=== PATIENT | female | born 1970 | race Asian ===

== ENCOUNTER 2018-07-28 15:01 | Inpatient (IN) | payer OTHER ==
[2018-07-28 15:08] VITALS: BMI 35.4
--- NOTE | 2018-07-28 15:42 | PDOC ---
History of Present Illness - General Chief Complaint: Blood Transfusion Stated Complaint: sent by PMD for eval and blood transfusion Time Seen by Provider: 07/28/18 15:14 History Source: Patient (Dr Jere Patel called that he performed liposuccion in both armsand trunk 2 weeks ago.), Other (Patient is complaining of generalized weakness,dizziness when walking, nausea in the morning) Exam Limitations: No Limitations - History of Present Illness Timing/Duration: unsure, getting worse Severity: moderate, severe Modifying Factors: improves with: rest Associated Symptoms: denies: denies symptoms, chest pain, cough, diaphoresis, fever/chills, headaches, loss of appetite, malaise, nausea/vomiting, rash, seizure, shortness of breath, syncope, weakness, other Past History - Travel Traveled outside of the country in the last 30 days: No Close contact w/someone who was outside of country & ill: No - Past Medical History Allergies/Adverse Reactions: Allergies Allergy/AdvReac Type Severity Reaction Status Date / Time No Known Allergies Allergy Verified 07/28/18 15:04 Home Medications: Ambulatory Orders Levothyroxine [Synthroid -] 50 mcg PO DAILY 07/28/18 COPD: No Thyroid Disease: Yes (hypo) - Family Disease History Family Disease History: Diabetes: Sister - Suicide/Smoking/Psychosocial Hx Smoking History: Never smoked Hx Alcohol Use: No Drug/Substance Use Hx: No Lives with/in: spouse/SO Review of Systems - Review of Systems Able to Perform ROS?: Yes Is the patient limited Mongolian proficient: Yes Constitutional: Yes: Symptoms Reported, See HPI, Weakness HEENTM: No: Symptoms Reported, See HPI, Eye Pain, Blurred Vision, Tearing, Recent change in vision, Double Vision, Cataracts, Ear Pain, Ocular Prothesis, Ear Discharge, Nose Pain, Nose Congestion, Tinnitus, Nose Bleeding, Hearing Loss , Throat Pain, Throat Swelling, Mouth Pain, Dental Problems, Difficulty Swallowing, Mouth Swelling, Other Respiratory: Yes: SOB with Exertion Cardiac (ROS): No: Symptoms Reported, See HPI, Chest Pain, Edema, Irregular Heart Rate, Lightheadedness, Palpitations, Syncope, Chest Tightness, Other ABD/GI: No: Symptoms Reported, See HPI, Abdominal Distended, Abd. Pain w/ defecation, Blood Streaked Bowels, Constipated, Diarrhea, Difficulty Swallowing , Nausea, Poor Appetite, Poor Fluid Intake, Rectal Bleeding, Vomiting, Indigestion, Abdominal cramping, Tarry Stools, Other : No: Symptoms Reported, See HPI, Burning, Dysuria, Discharge, Frequency, Flank Pain, Hematuria, Incontinence, Pain, Urgency, Testicular Mass, Testicular Swelling, Lesions, Testicular Pain, Other Musculoskeletal: Yes: See HPI Integumentary: Yes: See HPI Neurological: No: Symptoms reported, See HPI, Headache, Numbness, Paresthesia, Pre-Existing Deficit, Seizure, Tingling, Tremors, Weakness, Unsteady Gait, Ataxia, Dizziness, Other Psychiatric: No: Anxiety, Depression, Frequent Crying, Stressors, Sleep Pattern Change, Emotional Problems, Mood Swings, Change in Appetite, Other Endocrine: No: Symptoms Reported, See HPI, Excessive Sweating, Flushing, Intolerance to Cold, Intolerance to Heat, Increased Hunger, Increased Thirst, Increased Urine, Unexplained Weight Gain, Unexplained Weight Loss, Change in Weight, Other Hematologic/Lymphatic: No: Symptoms Reported, See HPI, Anemia, Blood Clots, Easy Bleeding, Easy Bruising, Bleeding Diathesis, Lymph Node Abnormalities, Swollen Glands, Other All Other Systems: Reviewed and Negative *Physical Exam - Vital Signs Last Vital Signs Temp Pulse Resp BP Pulse Ox 99.1 F 100 H 16 100/59 L 100 07/28/18 15:02 07/28/18 15:02 07/28/18 15:02 07/28/18 15:02 07/28/18 15:02 - Physical Exam General Appearance: Yes: Nourished, Appropriately Dressed, Moderate Distress HEENT: positive: ANN MARIE, Pale Conjunctivae, Other ( ) Neck: positive: Trachea midline, Supple Respiratory/Chest: positive: Lungs Clear, Normal Breath Sounds Cardiovascular: positive: S1, S2 Extremity: positive: Normal Capillary Refill Integumentary: positive: Pale, Other (Flaccid skin , few recent scars at sites of liposucction) Moderate Sedation - Procedure Monitoring Vital Signs: Procedure Monitoring Vital Signs Temperature 99.1 F 07/28/18 15:02 Pulse Rate 100 H 07/28/18 15:02 Respiratory Rate 16 07/28/18 15:02 Blood Pressure 100/59 L 07/28/18 15:02 O2 Sat by Pulse Oximetry (%) 100 07/28/18 15:02 Heart Score/ECG Review - Risk Factors Risk Factors Heart Score: Yes Hx Diabetes, Yes Positive family hx of cardiac disease - ECG Intrepretation Rhythm: Regular Rhythm - [place]: Normal - P and CO Prominent R with upright T in V1 (true posterior AR): No ED Treatment Course - LABORATORY CBC & Chemistry Diagram: 07/28/18 15:45 07/28/18 15:45 *DC/Admit/Observation/Transfer Diagnosis at time of Disposition: Signs and symptoms of anemia - Discharge Dispostion Condition at time of disposition: Stable Decision to Admit order: Yes - Referrals Referrals: Aris Bradley MD [Primary Care Provider] - - Patient Instructions - Post Discharge Activity
[2018-07-28] MEDS: SODIUM CHLORIDE 1,000 ML IV SCH (15:45)
[2018-07-28 15:55] LABS: HEMOGLOBIN 7.3 GM/dl (10.7-15.3)
[2018-07-28 16:02] LABS: HEMATOCRIT 21.5 % (32.4-45.2); MCHC 33.9 g/dl (32.0-36.0); MEAN CELL VOLUME 123.8 fl (80-96); MEAN PLT VOLUME 9.3 fl (7.5-11.1); PLATELET COUNT 126 K/MM3 (134-434); RBC 1.73 M/mm3 (3.60-5.2); RDW 19.6 % (11.6-15.6); WHITE BLOOD COUNT 3.6 K/mm3 (4.0-10.8)
[2018-07-28 16:03] LABS: ADD RBC MORPHOLOGY YES
[2018-07-28 16:28] LABS: ALBUMIN 3.7 g/dl (3.4-5.0); ALK PHOS 65 U/L (45-117); ANION GAP 4 MMOL/L (8-16); BILIRUBIN,TOTAL 2.7 mg/dl (0.2-1); BLOOD UREA NITROGEN 12 mg/dl (7-18); CALCIUM 8.7 mg/dl (8.5-10); CHLORIDE 106 mmol/L (98-107); CO2 25 mmol/L (21-32); CREATININE 0.6 mg/dl (0.55-1.3); GLUCOSE,RANDOM 145 mg/dl (74-106); POTASSIUM 4.3 mmol/L (3.5-5.1); SGOT/AST 57 U/L (15-37); SGPT/ALT 29 U/L (13-61); SODIUM 135 mmol/L (136-145); TOT PROT 6.8 g/dl (6.4-8.2)
[2018-07-28 17:25] LABS: ANISOCYTOSIS 3+; MACROCYTOSIS 3+; PLATELET ESTIMATE DECREASED; TEAR DROP CELLS 1+
--- NOTE | 2018-07-28 23:29 | HP ---
Admitting History and Physical - Admission Chief Complaint: dizziness and generalized weakness History of Present Illness: 48 year old F with hypothyroidism and anemia (pt has been transfused in the remote past) presents to ED at the urging of Dr. Patel who performed liposuction two weeks ago. Ms. Moran reports 10days of generalized malaise, somnolence and intermittent nausea which has been affecting her ADLs. She presented to Dr. Patel for routine post-op check on 07/27, where she reported her persistent symptoms and therefore labs were drawn. She was notified by Dr. Patel on the afternoon of 07/28 that her H/H was low and she required inpt admission for transfusion. In ED, pt was hemodynamically stable. BP 100/59, T 99.1, RR 16, O2 sat 100, HR 100bpm. STAT CBC: H/H 7.3/21.5, PLT 126, WBC 3.6 Pt had T and S sent to lab prior to 2units PRBC transfusion. 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's, CVA, Dementia, Migraine, Multiple Sclerosis, Peripheral Neuropathy, Parkinson's, Seizure, Syncope, TIA, Vertigo, Other Cardiovascular: No: AFIB, Aneurysm, Aortic Insufficiency, Aortic Stenosis, CAD, CHF, Deep Vein Thrombosis, HTN, Hyperlipdemia, [place], Mitral Insufficiency, Mitral Stenosis, Murmur, Pulmonary Hypertension, Other Pulmonary: No: Asthma, Bronchitis, Cancer, COPD, O2 Dependent, Pneumonia, Previously Intubated, Pulmonary Embolus, Pulmonary Fibrosis, Sleep Apnea, Other Gastrointestinal: No: Ascites, Cancer, Constipation, Crohn's Disease, Diverticulitis, Diverticulosis, Esophageal Varices, Gastritis, GERD, GI Bleed, Hemorrhoids, Hiatal Hernia, Inflamatory Bowel Disease, Irritable Bowel Disease, Pancreatitis, Peptic Ulcer Disease, Ulcerative Colitis, Other Hepatobiliary: No: Cirrhosis, Cholelithiasis, Cholecystitis, Choledocholithiasis , Hepatitis A, Hepatitis B, Hepatitis C, Other Renal/: No: Renal Failure, Renal Inusuff, BPH, Cancer, Hematuria, Hemodialysis , Neurogenic Bladder, Renal Calculi, UTI, Other Heme/Onc: Yes: Anemia Infectious Disease: No: AIDS, C-Diff, Herpes Zoster, HIV, MRSA, STD's, Tuberculosis, VREF, Other Psych: No: Addictions, Anxiety, Bipolar, Depression, Panic, Psychosis, Schizophrenia, Other Musculoskeletal: No: Bursitis, Chronic low back pain, Hemiparesis, Hemiplegia, Osteoarthritis, Paraplegia, Other Rheumatology: No: Fibromyalgia, Gout, Lupus, Rheumatoid Arthritis, Sarcoidosis, Vasculitis, Other ENT: No: Allergic Rhinitis, Sinusitis, Other Endocrine: Yes: Hypothyroidism Dermatology: No: Basal Cell, Cellulitis, Eczema, Melanoma, Psoriasis, Squamous Cell, Other - Past Surgical History Past Surgical History: Yes: (shivani patel 2018 liposuction 06/2018) - Smoking History Smoking history: Never smoked Have you smoked in the past 12 months: No - Alcohol/Substance Use Hx Alcohol Use: No History of Substance Use: reports: None - Social History Usual Living Arrangement: Yes: With Spouse, With Child ADL: Independent Occupation: Homemaker History of Recent Travel: No Other Social History: Exercise: none. Born in [place], emigrated > 32yrs ago Home Medications - Allergies Allergies/Adverse Reactions: Allergies Allergy/AdvReac Type Severity Reaction Status Date / Time No Known Allergies Allergy Verified 07/28/18 15:04 - Home Medications Home Medications: Ambulatory Orders Levothyroxine [Synthroid -] 50 mcg PO DAILY 07/28/18 Family Disease History - Family Disease History Family Disease History: Other: Father (alive(86) DMII, HTN), Mother (alive (85) HTN) Review of Systems - Review of Systems Constitutional: reports: Lethargy, Weakness Eyes: reports: No Symptoms HENT: reports: No Symptoms Neck: reports: No Symptoms Cardiovascular: reports: No Symptoms Respiratory: reports: No Symptoms Gastrointestinal: reports: No Symptoms Genitourinary: reports: No Symptoms Breasts: reports: No Symptoms Reported Musculoskeletal: reports: No Symptoms Integumentary: reports: Other (mild induration left upper arm) Neurological: reports: Weakness Endocrine: reports: No Symptoms Hematology/Lymphatic: reports: No Symptoms Psychiatric: reports: No Symptoms Physical Examination Vital Signs: Vital Signs Temperature 98.8 F 07/28/18 21:52 Pulse Rate 86 07/28/18 21:52 Respiratory Rate 20 07/28/18 21:52 Blood Pressure 100/59 L 07/28/18 21:52 O2 Sat by Pulse Oximetry (%) 98 07/28/18 23:00 Constitutional: Yes: Well Nourished, No Distress, Calm Eyes: Yes: Conjunctiva Clear, EOM Intact, PERRL HENT: Yes: Atraumatic, Normocephalic Neck: Yes: Supple, Trachea Midline Cardiovascular: Yes: Regular Rate and Rhythm Respiratory: Yes: Regular, CTA Bilaterally Gastrointestinal: Yes: Normal Bowel Sounds, Soft ...Rectal Exam: Yes: Deferred Musculoskeletal: Yes: WNL Extremities: Yes: Other (left upper posterior arm with palpable induration which is tender to touch) Edema: No Peripheral Pulses WNL: Yes Peripheral Pulses: Left Radial: 2+, Right Radial: 2+, Left Doralis Pedis: 2+, Right Dorsalis Pedis: 2+ Wound/Incision: Yes: Clean/Dry, Open to air Neurological: Yes: Alert, Oriented ...Motor Strength: WNL Psychiatric: Yes: Alert, Oriented Labs: CBC, BMP 07/28/18 15:45 07/28/18 15:45 Problem List - Problems (1) Anemia, macrocytic Assessment/Plan: f/u vitamin B12 and folate level 2 units PRBC for H/H 7.3/21.5, repeat CBC post transfusion pt is age 48yrs and C-scope is recommended pt should also receive outpt heme consult for chronic anemia, leukopenia and thrombocytopenia Code(s): D53.9 - NUTRITIONAL ANEMIA, UNSPECIFIED (2) Hypothyroidism Assessment/Plan: synthroid 50mcg daily f/u AM TSH and FT4 Code(s): E03.9 - HYPOTHYROIDISM, UNSPECIFIED (3) Prophylactic measure Assessment/Plan: bowel regimen OOB to chair Ambulate as tolerated IV hydration overnight Code(s): Z29.9 - ENCOUNTER FOR PROPHYLACTIC MEASURES, UNSPECIFIED Visit type - Emergency Visit Emergency Visit: Yes ED Registration Date: 07/28/18 Care time: The patient presented to the Emergency Department on the above date and was hospitalized for further evaluation of their emergent condition. - New Patient This patient is new to me today: Yes Date on this admission: 07/28/18 - Critical Care Critical Care patient: No
[2018-07-29] MEDS: LEVOTHYROXINE NA 50 MCG TABLET (FP) PO SCH (06:21)
[2018-07-29 08:09] LABS: BASO % 0.3 % (0-2.0); EOS % 3.3 % (0-4.5); HEMATOCRIT 29.3 % (32.4-45.2); HEMOGLOBIN 9.8 GM/dl (10.7-15.3); LYMPH % 60.9 % (8-40); MCH 36.5 pg (25.7-33.7); MCHC 33.4 g/dl (32.0-36.0); MEAN CELL VOLUME 109.3 fl (80-96); MEAN PLT VOLUME 9.9 fl (7.5-11.1); MONO % 3.4 % (3.8-10.2); NEUT % 32.1 % (42.8-82.8); PLATELET COUNT 88 K/MM3 (134-434); RBC 2.68 M/mm3 (3.60-5.2); RDW 27.6 % (11.6-15.6); WHITE BLOOD COUNT 4.1 K/mm3 (4.0-10.8)
[2018-07-29 08:12] LABS: ALBUMIN 3.4 g/dl (3.4-5.0); ALK PHOS 56 U/L (45-117); ANION GAP 5 MMOL/L (8-16); BILIRUBIN,TOTAL 3.2 mg/dl (0.2-1); BLOOD UREA NITROGEN 9 mg/dl (7-18); CALCIUM 8.6 mg/dl (8.5-10); CHLORIDE 106 mmol/L (98-107); CO2 25 mmol/L (21-32); CREATININE 0.6 mg/dl (0.55-1.3); GLUCOSE,RANDOM 117 mg/dl (74-106); PHOSPHOROUS 4.1 mg/dl (2.5-4.9); POTASSIUM 4.1 mmol/L (3.5-5.1); SGOT/AST 43 U/L (15-37); SGPT/ALT 25 U/L (13-61); SODIUM 136 mmol/L (136-145); TOT PROT 6.3 g/dl (6.4-8.2)
[2018-07-29] MEDS: DOCUSATE SODIUM 100 MG CAPSULE (FP) PO SCH (10:00)
--- NOTE | 2018-07-29 10:54 | PN ---
Physical Exam: SUBJECTIVE: Patient seen and examined. Feels better after transfusion. OBJECTIVE: Vital Signs Period Temp Pulse Resp BP Sys/Méndez Pulse Ox Last 24 Hr 98.8 F-99.1 F 75-100 16-20 100-112/59-62 97-100 GENERAL: The patient is awake, alert, and fully oriented, in no acute distress. LUNGS: Breath sounds equal, clear to auscultation bilaterally, no wheezes, no crackles, no accessory muscle use. HEART: Regular rate and rhythm, S1, S2 ABDOMEN: Soft, nontender, nondistended, normoactive bowel sounds; well-healed surgical port LLQ, no surrounding erythema, warmth, tenderness, or fluctuance UPPER EXTREMITIES: 2+ pulses, warm, well-perfused, no edema. Left tricep area of induration with mild tenderness, but no erythema, warmth, or fluctuance NEUROLOGICAL: Cranial nerves II through XII grossly intact. Normal speech, steady gait. PSYCH: Normal mood, normal affect. SKIN: Warm, dry, normal turgor, no rashes or lesions noted Laboratory Results - last 24 hr 07/28/18 07/28/18 07/28/18 15:45 15:45 16:00 WBC 3.6 L RBC 1.73 L Hgb 7.3 L Hct 21.5 L MCV 123.8 H MCH 42.0 H MCHC 33.9 RDW 19.6 H Plt Count 126 L MPV 9.3 Absolute Neuts (auto) 1.4 Neutrophils % No Result Required. Neutrophils % (Manual) 50.0 Lymphocytes % No Result Required. Lymphocytes % (Manual) 44.0 H Monocytes % Monocytes % (Manual) 4 Eosinophils % Eosinophils % (Manual) 2.0 Basophils % Platelet Estimate Decreased Platelet Comment Few giants platelets Anisocytosis 3+ Macrocytosis 3+ Tear Drop Cells 1+ Sodium 135 L Potassium 4.3 Chloride 106 Carbon Dioxide 25 Anion Gap 4 L BUN 12 Creatinine 0.6 Creat Clearance w eGFR > 60 Random Glucose 145 H Calcium 8.7 Phosphorus Magnesium Total Bilirubin 2.7 H AST 57 H ALT 29 Alkaline Phosphatase 65 Total Protein 6.8 Albumin 3.7 TSH 1.94 Blood Type O POSITIVE Antibody Screen Negative Crossmatch See Detail 07/28/18 07/29/18 07/29/18 16:15 07:29 07:29 WBC 4.1 RBC 2.68 L Hgb 9.8 L Hct 29.3 L D MCV 109.3 H MCH 36.5 H D MCHC 33.4 RDW 27.6 H Plt Count 88 L MPV 9.9 Absolute Neuts (auto) 1.3 Neutrophils % 32.1 L Neutrophils % (Manual) Lymphocytes % 60.9 H Lymphocytes % (Manual) Monocytes % 3.4 L Monocytes % (Manual) Eosinophils % 3.3 Eosinophils % (Manual) Basophils % 0.3 Platelet Estimate Platelet Comment Anisocytosis Macrocytosis Tear Drop Cells Sodium 136 Potassium 4.1 Chloride 106 Carbon Dioxide 25 Anion Gap 5 L BUN 9 Creatinine 0.6 Creat Clearance w eGFR > 60 Random Glucose 117 H Calcium 8.6 Phosphorus 4.1 Magnesium 2.0 Total Bilirubin 3.2 H AST 43 H ALT 25 Alkaline Phosphatase 56 Total Protein 6.3 L Albumin 3.4 TSH Blood Type Cancelled Antibody Screen Crossmatch Current Medications Generic Name Dose Route Start Last Admin Trade Name Freq PRN Reason Stop Dose Admin Acetaminophen 650 mg 07/29/18 18:29 07/29/18 19:02 Tylenol - PO 650 mg Q6H PRN Administration PAIN LEVEL 1-5 Docusate Sodium 100 mg 07/29/18 10:00 07/29/18 10:00 Colace - PO 100 mg DAILY SONAL Administration Sodium Chloride 1,000 mls @ 100 mls/hr 07/28/18 15:45 07/29/18 16:36 Normal Saline - IV 100 mls/hr ASDIR SONAL Administration Piperacillin Sod/Tazobactam 50 mls @ 100 mls/hr 07/29/18 18:00 07/29/18 19:02 Sod 3.375 gm/ Dextrose IVPB 100 mls/hr Q8H-IV SONAL Administration Protocol Levothyroxine Sodium 50 mcg 07/29/18 07:00 07/29/18 06:21 Synthroid - PO 50 mcg DAILY@0700 SONAL Administration Senna 1 tab 07/28/18 22:00 Senna - PO HS SONAL ASSESSMENT/PLAN 48 year-old female with a PMH significant for hypothyroidism, iron-deficiency anemia, and s/p liposuction of both upper extremities and abdomen on 07/03/18. Sent to the ED by Dr. Carlos Manuel Patel who performed the procedure. Patient had reported to him symptoms of profound fatigue for the past 10 days. Labs drawn in his office showed a Hgb 7.4. He referred the patient to the ED for transfusion. Patient found to be pancytopenic. Pancytopenia Macrocytosis --Hgb 7.3, transfused 2U PRBC --> 9.8; pre-procedure labs from 02/02/18 show Hgb 9.2 (see paper chart) --WBC 3.6k-->4.1k; pre-procedure 7.3k --platelets 126-->88; pre-procedure 245 --MCV 123.8; pre-procedure 98 --possible due to evolving sepsis; started empiric zosyn; vanc x 1 dose; ID to follow; CT upper extremities, abdomen, pelvis; blood cx pending --check am labs; if no improvement on abx, will get heme involved Hyperbilirubinemia Transaminitis --total bili 2.7-->3.2; pre-procedure 0.9 --check am labs Hypothyroidism --TSH 1.94-->4.43; pre-procddure 15.5; levothyroxine dose was adjusted by PCP --continue current dosing, values may be misleading due to acute inflammation FEN Fluids: NS@100mL/hr Electrolytes: replete as indicated Nutrition: regular diet DVT prophylaxis: SCDs, oob, ambulation Dispo: continues to require observation. Full code. Visit type - Emergency Visit Emergency Visit: Yes ED Registration Date: 07/28/18 Care time: The patient presented to the Emergency Department on the above date and was hospitalized for further evaluation of their emergent condition. - New Patient This patient is new to me today: Yes Date on this admission: 07/29/18 - Critical Care Critical Care patient: No
[2018-07-29] MEDS ORDERED: VANCOMYCIN 1 GM in D5W (PRE-DOCKED) 1,000 MG/250 ML IVPB ONE (12:30)
[2018-07-29] MEDS ORDERED: PIPERACILLIN/TAZOB 3.375 GM 3.375 GM in DEXTROSE 5%-WATER - 50 ML IVPB ONE (12:30)
[2018-07-29] MEDS ORDERED: PIPERACILLIN/TAZOBACTAM 3.375 GM VIAL IVPB ONE ×2 (13:12→18:32)
[2018-07-29] MEDS ORDERED: DEXTROSE 5%-WATER - 50 ML IVPB ONE ×2 (13:12→18:32)
--- NOTE | 2018-07-29 14:53 | EKG ---
Test Reason : Blood Pressure : / mmHG Vent. Rate : 092 BPM Atrial Rate : 092 BPM P-R Int : 116 ms QRS Dur : 070 ms QT Int : 374 ms P-R-T Axes : 069 058 051 degrees QTc Int : 462 ms NORMAL SINUS RHYTHM NORMAL ECG NO PREVIOUS ECGS AVAILABLE Confirmed by ZACHERY VICENTE, STEPHANY ([id number]) on 07/29/2018 2:53:10 PM Referred By: Ignacio Franco Confirmed By:STEPHANY BINGHAM MD
--- NOTE | 2018-07-29 14:54 | EKG ---
Test Reason : Blood Pressure : / mmHG Vent. Rate : 084 BPM Atrial Rate : 084 BPM P-R Int : 122 ms QRS Dur : 068 ms QT Int : 370 ms P-R-T Axes : 069 060 061 degrees QTc Int : 437 ms NORMAL SINUS RHYTHM NORMAL ECG WHEN COMPARED WITH ECG OF 28-JUL-2018 16:11, NO SIGNIFICANT CHANGE WAS FOUND Confirmed by ZACHERY VICENTE, STEPHANY ([id number]) on 07/29/2018 2:53:39 PM Referred By: Ignacio Franco Confirmed By:STEPHANY BINGHAM MD
--- NOTE | 2018-07-29 16:16 | CON.ID ---
Consult Consult Specialty:: infectious diseses Referred by:: Peg Reason for Consultation:: fever,weakness - History of Present Illness Chief Complaint: weakness History of Present Illness: 48 year old F with hypothyroidism and anemia (pt has been transfused in the remote past) admitted at the urging of Dr. Patel who performed liposuction two weeks ago. Ms. Moran reports 10days of generalized malaise, somnolence and intermittent nausea which has been affecting her ADLs. She presented to Dr. Patel for routine post-op check on 07/27, where she reported her persistent symptoms and therefore labs were drawn. She was notified by Dr. Patel on the afternoon of 07/28 that her H/H was low and she required input admission for transfusion. 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, CVA, Dementia, Migraine, Multiple Sclerosis, Peripheral Neuropathy, Parkinson's, Seizure, Syncope, TIA, Vertigo, Other Cardio/Vascular: No: AFIB, Aneurysm, Aortic Insufficiency, Aortic Stenosis, CAD , CHF, Deep Vein Thrombosis, HTN, Hyperlipdemia, [place], Mitral Insufficiency, Mitral Stenosis, Murmur, Pulmonary Hypertension, Other Pulmonary: No: Asthma, Bronchitis, Cancer, COPD, O2 Dependent, Pneumonia, Previously Intubated, Pulmonary Embolus, Pulmonary Fibrosis, Sleep Apnea, Other Gastrointestinal: No: Ascites, Cancer, Constipation, Crohn's Disease, Diverticulitis, Diverticulosis, Esophageal Varices, Gastritis, GERD, GI Bleed, Hemorrhoids, Hiatal Hernia, Inflamatory Bowel Disease, Irritable Bowel Disease, Pancreatitis, Peptic Ulcer Disease, Ulcerative Colitis, Other Hepatobiliary: No: Cirrhosis, Cholelithiasis, Cholecystitis, Choledocholithiasis , Hepatitis A, Hepatitis B, Hepatitis C, Other Renal/: No: Renal Failure, Renal Inusuff, BPH, Cancer, Hematuria, Hemodialysis , Neurogenic Bladder, Renal Calculi, UTI, Other Infectious Disease: No: AIDS, C-Diff, Herpes Zoster, HIV, MRSA, STD's, Tuberculosis, VREF, Other Psych: No: Addictions, Anxiety, Bipolar, Depression, Panic, Psychosis, Schizophrenia, Other Musculoskeletal: No: Bursitis, Chronic low back pain, Hemiparesis, Hemiplegia, Osteoarthritis, Paraplegia, Other Rheumatology: No: Fibromyalgia, Gout, Lupus, Rheumatoid Arthritis, Sarcoidosis, Vasculitis, Other ENT: No: Allergic Rhinitis, Sinusitis, Other Endocrine: Yes: Hypothyroidism Dermatology: No: Basal Cell, Cellulitis, Eczema, Melanoma, Psoriasis, Squamous Cell, Other - Past Surgical History Past Surgical History: Yes: (shivani patel 2018 liposuction 06/2018) - Alcohol/Substance Use Hx Alcohol Use: No History of Substance Use: reports: None - Smoking History Smoking history: Never smoked Have you smoked in the past 12 months: No - Social History ADL: Independent Occupation: Homemaker History of Recent Travel: No Home Medications - Allergies Allergies/Adverse Reactions: Allergies Allergy/AdvReac Type Severity Reaction Status Date / Time No Known Allergies Allergy Verified 07/28/18 15:04 - Home Medications Home Medications: Ambulatory Orders Levothyroxine [Synthroid -] 50 mcg PO DAILY 07/28/18 Family Disease History - Family Disease History Family Disease History: Other: Father (alive(86) DMII, HTN), Mother (alive (85) HTN) Review of Systems - Review of Systems Constitutional: reports: Weakness Eyes: reports: No Symptoms Cardiovascular: reports: No Symptoms Respiratory: reports: No Symptoms Gastrointestinal: reports: No Symptoms Genitourinary: reports: No Symptoms Musculoskeletal: reports: Other Integumentary: reports: No Symptoms Neurological: reports: No Symptoms Endocrine: reports: No Symptoms Hematology/Lymphatic: reports: No Symptoms Psychiatric: reports: No Symptoms Physical Exam Vital Signs: Vital Signs Temperature 98.3 F 07/29/18 14:37 Pulse Rate 77 07/29/18 14:37 Respiratory Rate 18 07/29/18 14:37 Blood Pressure 140/74 07/29/18 14:37 O2 Sat by Pulse Oximetry (%) 100 07/29/18 14:37 Constitutional: Yes: Well Nourished, Calm, Mild Distress, Obese Eyes: Yes: Conjunctiva Clear Neck: Yes: Supple, Trachea Midline Cardiovascular: Yes: Regular Rate and Rhythm Respiratory: Yes: Regular, CTA Bilaterally Gastrointestinal: Yes: Normal Bowel Sounds, Soft Musculoskeletal: Yes: WNL Extremities: Yes: WNL Wound/Incision: Yes: Other (post op site is good) Neurological: Yes: Alert, Oriented Psychiatric: Yes: Alert, Oriented Labs: CBC, BMP 07/29/18 07:29 07/29/18 07:29 Imaging - Results Chest X-ray: Report Reviewed, Image Reviewed Cat Scan: Report Reviewed, Image Reviewed Assessment/Plan patient alos c/o of vomiting and nausea she also mentions lot of aspiration of blood from her arms Problem List - Problems (1) Anemia, macrocytic Code(s): D53.9 - NUTRITIONAL ANEMIA, UNSPECIFIED (2) Hypothyroidism Code(s): E03.9 - HYPOTHYROIDISM, UNSPECIFIED (3) Prophylactic measure Code(s): Z29.9 - ENCOUNTER FOR PROPHYLACTIC MEASURES, UNSPEC liposuction plan await for all other results we will continue abx for now close watch rest as per the team
[2018-07-29] MEDS: SODIUM CHLORIDE 1,000 ML IV SCH (16:36)
[2018-07-29] MEDS ORDERED: PIPERACILLIN/TAZOB 3.375 GM 3.375 GM in DEXTROSE 5%-WATER - 50 ML IVPB SCH (18:00)
[2018-07-29] MEDS ORDERED: ACETAMINOPHEN 325 MG TABLET (FP) PO PRN (18:29)
[2018-07-29] MEDS ORDERED: ACETAMINOPHEN 325 MG TABLET (FP) ONE (18:32)
[2018-07-29] MEDS: PIPERACILLIN/TAZOB 3.375 GM 3.375 GM in DEXTROSE 5%-WATER - 50 ML IVPB SCH (19:02)
[2018-07-29] MEDS: SENNOSIDES 8.6MG TABLET (FP) PO SCH (22:08)
[2018-07-30] MEDS ORDERED: DEXTROSE 5%-WATER - 50 ML IVPB ONE ×2 (00:50→09:43)
[2018-07-30] MEDS ORDERED: PIPERACILLIN/TAZOBACTAM 3.375 GM VIAL IVPB ONE ×2 (00:50→09:43)
[2018-07-30] MEDS: PIPERACILLIN/TAZOB 3.375 GM 3.375 GM in DEXTROSE 5%-WATER - 50 ML IVPB SCH ×2 (02:00→10:00)
[2018-07-30] MEDS: LEVOTHYROXINE NA 50 MCG TABLET (FP) PO SCH (06:17)
[2018-07-30 08:18] LABS: ACTIVATED PTT 25.7 SECONDS (25.2-36.5)
[2018-07-30 08:21] LABS: ALBUMIN 3.4 g/dl (3.4-5.0); ALK PHOS 59 U/L (45-117); ANION GAP 9 MMOL/L (8-16); BILIRUBIN,TOTAL 3.5 mg/dl (0.2-1); BLOOD UREA NITROGEN 8 mg/dl (7-18); CALCIUM 8.4 mg/dl (8.5-10); CHLORIDE 102 mmol/L (98-107); CO2 25 mmol/L (21-32); CREATININE 0.7 mg/dl (0.55-1.3); GLUCOSE,RANDOM 136 mg/dl (74-106); MAGNESIUM 1.9 mg/dL (1.8-2.4); POTASSIUM 4.1 mmol/L (3.5-5.1); SGOT/AST 43 U/L (15-37); SGPT/ALT 25 U/L (13-61); SODIUM 136 mmol/L (136-145); TOT PROT 6.4 g/dl (6.4-8.2)
[2018-07-30 08:23] LABS: INR 1.19 (0.82-1.09); PROTHROMBIN TIME (PATIENT) 13.3 SEC (10.2-13.0)
[2018-07-30 08:26] LABS: BASO % 0.3 % (0-2.0); HEMATOCRIT 28.1 % (32.4-45.2); HEMOGLOBIN 9.4 GM/dl (10.7-15.3); LYMPH % 28.3 % (8-40); MCH 36.3 pg (25.7-33.7); MCHC 33.3 g/dl (32.0-36.0); MEAN CELL VOLUME 108.9 fl (80-96); MEAN PLT VOLUME 9.3 fl (7.5-11.1); MONO % 3.1 % (3.8-10.2); NEUT % 66.3 % (42.8-82.8); PLATELET COUNT 68 K/MM3 (134-434); RBC 2.58 M/mm3 (3.60-5.2); RDW 27.4 % (11.6-15.6); WHITE BLOOD COUNT 4.4 K/mm3 (4.0-10.8)
[2018-07-30] MEDS: DOCUSATE SODIUM 100 MG CAPSULE (FP) PO SCH (10:00)
--- NOTE | 2018-07-30 12:07 | PN ---
Physical Exam: SUBJECTIVE: Patient seen and examined. Feeling very well. OBJECTIVE: Vital Signs Period Temp Pulse Resp BP Sys/Méndez Pulse Ox Last 24 Hr 98.3 F-98.9 F 77-97 16-18 123-140/66-74 99-100 GENERAL: The patient is awake, alert, and fully oriented, in no acute distress. LUNGS: Breath sounds equal, clear to auscultation bilaterally, no wheezes, no crackles, no accessory muscle use. HEART: Regular rate and rhythm, S1, S2 ABDOMEN: Soft, nontender, nondistended, normoactive bowel sounds; well-healed surgical port LLQ, no surrounding erythema, warmth, tenderness, or fluctuance UPPER EXTREMITIES: 2+ pulses, warm, well-perfused, no edema. Left tricep area of induration with mild tenderness, but no erythema, warmth, or fluctuance NEUROLOGICAL: Cranial nerves II through XII grossly intact. Normal speech, steady gait. PSYCH: Normal mood, normal affect. SKIN: Warm, dry, normal turgor, no rashes or lesions noted Laboratory Results - last 24 hr 07/28/18 07/29/18 07/29/18 16:00 07:29 07:29 WBC RBC Hgb Hct MCV MCH MCHC RDW Plt Count MPV Absolute Neuts (auto) Neutrophils % Lymphocytes % Monocytes % Eosinophils % Basophils % PT with INR INR PTT (Actin FS) Sodium Potassium Chloride Carbon Dioxide Anion Gap BUN Creatinine Creat Clearance w eGFR Random Glucose Calcium Magnesium Total Bilirubin Direct Bilirubin AST ALT Alkaline Phosphatase Total Protein Albumin Vitamin B12 < 60 L Serum Folate 18 H TSH 4.43 H Free T4 1.02 Crossmatch See Detail 07/29/18 07/30/18 07/30/18 13:30 07:00 07:00 WBC 4.4 RBC 2.58 L Hgb 9.4 L Hct 28.1 L MCV 108.9 H MCH 36.3 H MCHC 33.3 RDW 27.4 H Plt Count 68 L MPV 9.3 Absolute Neuts (auto) 3.0 Neutrophils % 66.3 Lymphocytes % 28.3 Monocytes % 3.1 L Eosinophils % 2.0 Basophils % 0.3 PT with INR 13.3 H INR 1.19 PTT (Actin FS) 25.7 Sodium Potassium Chloride Carbon Dioxide Anion Gap BUN Creatinine Creat Clearance w eGFR Random Glucose Calcium Magnesium Total Bilirubin Direct Bilirubin 0.3 H AST ALT Alkaline Phosphatase Total Protein Albumin Vitamin B12 Serum Folate TSH Free T4 Crossmatch 07/30/18 07:00 WBC RBC Hgb Hct MCV MCH MCHC RDW Plt Count MPV Absolute Neuts (auto) Neutrophils % Lymphocytes % Monocytes % Eosinophils % Basophils % PT with INR INR PTT (Actin FS) Sodium 136 Potassium 4.1 Chloride 102 Carbon Dioxide 25 Anion Gap 9 BUN 8 Creatinine 0.7 Creat Clearance w eGFR > 60 Random Glucose 136 H Calcium 8.4 L Magnesium 1.9 Total Bilirubin 3.5 H Direct Bilirubin AST 43 H ALT 25 Alkaline Phosphatase 59 Total Protein 6.4 Albumin 3.4 Vitamin B12 Serum Folate TSH Free T4 Crossmatch Active Medications Generic Name Dose Route Start Last Admin Trade Name Freq PRN Reason Stop Dose Admin Acetaminophen 650 mg 07/29/18 18:29 07/29/18 19:02 Tylenol - PO 650 mg Q6H PRN Administration PAIN LEVEL 1-5 Docusate Sodium 100 mg 07/29/18 10:00 07/30/18 10:00 Colace - PO 100 mg DAILY SONAL Administration Piperacillin Sod/Tazobactam 50 mls @ 100 mls/hr 07/29/18 18:00 07/30/18 10:00 Sod 3.375 gm/ Dextrose IVPB 100 mls/hr Q8H-IV SONAL Administration Protocol Levothyroxine Sodium 50 mcg 07/29/18 07:00 07/30/18 06:17 Synthroid - PO 50 mcg DAILY@0700 SONAL Administration Senna 1 tab 07/28/18 22:00 07/29/18 22:08 Senna - PO 1 tab HS SONAL Administration ASSESSMENT/PLAN: 48 year-old female with a PMH significant for hypothyroidism, iron-deficiency anemia, and s/p liposuction of both upper extremities and abdomen on 07/03/18. Sent to the ED by Dr. Carlos Manuel Patel who performed the procedure. Patient had reported to him symptoms of profound fatigue for the past 10 days. Labs drawn in his office showed a Hgb 7.4. He referred the patient to the ED for transfusion. Patient found to be pancytopenic. Thrombocytopenia Macrocytosis --baseline 245k; on this admission 126-->88-->68k --Hgb 7.3, transfused 2U PRBC --> 9.8-->9.4, stable --WBC 3.6k-->4.4k --MCV 123.8; pre-procedure 98 --sepsis etiology appearing less likely; remains afebrile and US of upper extremities and CTAP unrevealing of infection source; will continue empiric Zosyn --heme consult requested Hyperbilirubinemia --total bili 2.7-->3.2-->3.5; pre-procedure 0.9 Hypothyroidism --TSH 1.94-->4.43; pre-procedure 15.5; levothyroxine dose was adjusted by PCP --continue current dosing, values may be misleading due to acute inflammation FEN Fluids: PO intake adequate Electrolytes: replete as indicated Nutrition: regular diet DVT prophylaxis: SCDs, oob, ambulation Dispo: continues to require inpatient care. Full code. Visit type - Emergency Visit Emergency Visit: Yes ED Registration Date: 07/28/18 Care time: The patient presented to the Emergency Department on the above date and was hospitalized for further evaluation of their emergent condition. - New Patient This patient is new to me today: No - Critical Care Critical Care patient: No
--- NOTE | 2018-07-30 15:37 | PN ---
Progress Note, Physician History of Present Illness: stable no new issues found to have acute vit b12 deficency - Current Medication List Current Medications: Active Medications Acetaminophen (Tylenol -) 650 mg PO Q6H PRN PRN Reason: PAIN LEVEL 1-5 Last Admin: 07/29/18 19:02 Dose: 650 mg Docusate Sodium (Colace -) 100 mg PO DAILY [facility] Last Admin: 07/30/18 10:00 Dose: 100 mg Piperacillin Sod/Tazobactam (Sod 3.375 gm/ Dextrose) 50 mls @ 100 mls/hr IVPB Q8H-IV SONAL; Protocol Last Admin: 07/30/18 10:00 Dose: 100 mls/hr Levothyroxine Sodium (Synthroid -) 50 mcg PO DAILY@0700 [facility] Last Admin: 07/30/18 06:17 Dose: 50 mcg Senna (Senna -) 1 tab PO HS [facility] Last Admin: 07/29/18 22:08 Dose: 1 tab - Objective Vital Signs: Vital Signs Temperature 98.1 F 07/30/18 14:12 Pulse Rate 77 07/30/18 14:12 Respiratory Rate 18 07/30/18 14:12 Blood Pressure 129/75 07/30/18 14:12 O2 Sat by Pulse Oximetry (%) 99 07/30/18 14:12 Constitutional: Yes: No Distress, Calm Cardiovascular: Yes: Regular Rate and Rhythm Respiratory: Yes: Regular, CTA Bilaterally Gastrointestinal: Yes: Normal Bowel Sounds, Soft Musculoskeletal: Yes: WNL Extremities: Yes: WNL Neurological: Yes: Alert, Oriented Psychiatric: Yes: Alert, Oriented Labs: CBC, BMP 07/30/18 07:00 07/30/18 07:00 INR, PTT INR 1.19 (0.82-1.09) 07/30/18 07:00 Assessment/Plan patient alos c/o of vomiting and nausea she also mentions lot of aspiration of blood from her arms Problem List - Problems (1) Anemia, macrocytic Code(s): D53.9 - NUTRITIONAL ANEMIA, UNSPECIFIED (2) Hypothyroidism Code(s): E03.9 - HYPOTHYROIDISM, UNSPECIFIED (3) Prophylactic measure Code(s): Z29.9 - ENCOUNTER FOR PROPHYLACTIC MEASURES, UNSPEC liposuction vit b12 deciency plan stop all abx replace vit b12 rest as per the team patient improving
--- NOTE | 2018-07-30 17:44 | CONSULT ---
Consult Consult Specialty:: heme Referred by:: KENTRELL Mancia Reason for Consultation:: pancytopenia - History of Present Illness Chief Complaint: weakness History of Present Illness: 48 yof w h/o hypothyroid, anemia, B12 def, iron def adm approx 2 w following liposuction. Duncan weak post-op and had eval w Dr Patel who evacuated UEs serosanguinous fluid and obtained bloodwork. He ref to hosp w severe macrocytic anemia, t-penia noted. 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: Alzheimer's, CVA, Dementia, Migraine, Multiple Sclerosis, Peripheral Neuropathy, Parkinson's, Seizure, Syncope, TIA, Vertigo, Other Cardio/Vascular: No: AFIB, Aneurysm, Aortic Insufficiency, Aortic Stenosis, CAD , CHF, Deep Vein Thrombosis, HTN, Hyperlipdemia, IN, Mitral Insufficiency, Mitral Stenosis, Murmur, Pulmonary Hypertension, Other Pulmonary: No: Asthma, Bronchitis, Cancer, COPD, O2 Dependent, Pneumonia, Previously Intubated, Pulmonary Embolus, Pulmonary Fibrosis, Sleep Apnea, Other Gastrointestinal: No: Ascites, Cancer, Constipation, Crohn's Disease, Diverticulitis, Diverticulosis, Esophageal Varices, Gastritis, GERD, GI Bleed, Hemorrhoids, Hiatal Hernia, Inflamatory Bowel Disease, Irritable Bowel Disease, Pancreatitis, Peptic Ulcer Disease, Ulcerative Colitis, Other Hepatobiliary: No: Cirrhosis, Cholelithiasis, Cholecystitis, Choledocholithiasis , Hepatitis A, Hepatitis B, Hepatitis C, Other Renal/: No: Renal Failure, Renal Inusuff, BPH, Cancer, Hematuria, Hemodialysis , Neurogenic Bladder, Renal Calculi, UTI, Other Infectious Disease: No: AIDS, C-Diff, Herpes Zoster, HIV, MRSA, STD's, Tuberculosis, VREF, Other Psych: No: Addictions, Anxiety, Bipolar, Depression, Panic, Psychosis, Schizophrenia, Other Musculoskeletal: No: Bursitis, Chronic low back pain, Hemiparesis, Hemiplegia, Osteoarthritis, Paraplegia, Other Rheumatology: No: Fibromyalgia, Gout, Lupus, Rheumatoid Arthritis, Sarcoidosis, Vasculitis, Other ENT: No: Allergic Rhinitis, Sinusitis, Other Endocrine: Yes: Hypothyroidism Dermatology: No: Basal Cell, Cellulitis, Eczema, Melanoma, Psoriasis, Squamous Cell, Other - Past Surgical History Past Surgical History: Yes: (shivani patel 2018 liposuction 06/2018) - Alcohol/Substance Use Hx Alcohol Use: No History of Substance Use: reports: None - Smoking History Smoking history: Never smoked Have you smoked in the past 12 months: No - Social History ADL: Independent Occupation: Homemaker History of Recent Travel: No Home Medications - Allergies Allergies/Adverse Reactions: Allergies Allergy/AdvReac Type Severity Reaction Status Date / Time No Known Allergies Allergy Verified 07/28/18 15:04 - Home Medications Home Medications: Ambulatory Orders Levothyroxine [Synthroid -] 50 mcg PO DAILY 07/28/18 Family Disease History - Family Disease History Family Disease History: Other: Father (alive(86) DMII, HTN), Mother (alive (85) HTN) Review of Systems - Review of Systems Constitutional: reports: Weakness Neurological: reports: Parasthesia, Other (occas numbness UEs, few instances of forgetfulness, no HAs (except 1 yest)) Physical Exam Vital Signs: Vital Signs Temperature 98.1 F 07/30/18 14:12 Pulse Rate 77 07/30/18 14:12 Respiratory Rate 18 07/30/18 14:12 Blood Pressure 129/75 07/30/18 14:12 O2 Sat by Pulse Oximetry (%) 99 07/30/18 14:12 Constitutional: Yes: No Distress Eyes: Yes: WNL HENT: Yes: WNL Neck: Yes: WNL, Supple Cardiovascular: Yes: Regular Rate and Rhythm Respiratory: Yes: CTA Bilaterally Gastrointestinal: Yes: Normal Bowel Sounds, Soft, Other (healing incisions) Edema: No Integumentary: Yes: Other (no signif ecchymoses) Neurological: Yes: Alert, Oriented (grossly NF) Psychiatric: Yes: WNL, Alert, Oriented Labs: CBC, BMP 07/30/18 07:00 07/30/18 07:00 Assessment/Plan P smear - 3+ macro ovalocytes/teardrops, dec plts w rare large plt, 0-1 schisto Imp: macrocytic anemia/t-penia in pt w bkd low B12. 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 O. can deplete B12 stores. Can see some hemolysis in B12 def She likely has PA d/w team re: B12 inj She will need to be monitored in subacute period for neurologic sequelae
[2018-07-30] MEDS: CYANOCOBALAMIN (VITAMIN B-12) 1000 MCG/1 ML VIAL IM SCH (17:55)
[2018-07-30] MEDS: SENNOSIDES 8.6MG TABLET (FP) PO SCH (22:52)
[2018-07-31] MEDS: LEVOTHYROXINE NA 50 MCG TABLET (FP) PO SCH (06:28)
[2018-07-31] MEDS: CYANOCOBALAMIN (VITAMIN B-12) 1000 MCG/1 ML VIAL IM SCH (09:45)
[2018-07-31] MEDS: DOCUSATE SODIUM 100 MG CAPSULE (FP) PO SCH (09:45)
[2018-07-31 10:43] LABS: HEMATOCRIT 28.5 % (32.4-45.2); HEMOGLOBIN 9.5 GM/dl (10.7-15.3); MCH 36.7 pg (25.7-33.7); MCHC 33.3 g/dl (32.0-36.0); MEAN CELL VOLUME 110.1 fl (80-96); MEAN PLT VOLUME 11.2 fl (7.5-11.1); PLATELET COUNT 101 K/MM3 (134-434); RBC 2.59 M/mm3 (3.60-5.2); RDW 27.4 % (11.6-15.6); WHITE BLOOD COUNT 3.5 K/mm3 (4.0-10.8)
[2018-07-31 10:54] LABS: ALBUMIN 3.4 g/dl (3.4-5.0); ALK PHOS 58 U/L (45-117); ANION GAP 5 MMOL/L (8-16); BILIRUBIN,DIRECT 0.3 mg/dL (0.0-0.2); BILIRUBIN,TOTAL 2.2 mg/dl (0.2-1); BLOOD UREA NITROGEN 8 mg/dl (7-18); CALCIUM 8.7 mg/dl (8.5-10); CHLORIDE 106 mmol/L (98-107); CO2 25 mmol/L (21-32); CREATININE 0.7 mg/dl (0.55-1.3); GLUCOSE,RANDOM 148 mg/dl (74-106); MAGNESIUM 1.8 mg/dL (1.8-2.4); POTASSIUM 3.8 mmol/L (3.5-5.1); SGOT/AST 40 U/L (15-37); SGPT/ALT 26 U/L (13-61); SODIUM 136 mmol/L (136-145); TOT PROT 6.1 g/dl (6.4-8.2)
[2018-07-31 11:50] LABS: PLATELET ESTIMATE DECREASED
--- NOTE | 2018-07-31 13:39 | DS ---
Physical Exam: SUBJECTIVE: Patient seen and examined at bedside. Feeling well. Anxious to go home. OBJECTIVE: Vital Signs Period Temp Pulse Resp BP Sys/Méndez Pulse Ox Last 24 Hr 97.6 F-98.6 F 68-78 16-20 96-138/49-76 97-100 PHYSICAL EXAM GENERAL: The patient is awake, alert, and fully oriented, in no acute distress. LUNGS: Breath sounds equal, clear to auscultation bilaterally, no wheezes, no crackles, no accessory muscle use. HEART: Regular rate and rhythm, S1, S2 ABDOMEN: Soft, nontender, nondistended, normoactive bowel sounds; well-healed surgical port LLQ, no surrounding erythema, warmth, tenderness, or fluctuance UPPER EXTREMITIES: 2+ pulses, warm, well-perfused, no edema. Left tricep area of induration with mild tenderness, but no erythema, warmth, or fluctuance NEUROLOGICAL: Cranial nerves II through XII grossly intact. Normal speech, steady gait. PSYCH: Normal mood, normal affect. SKIN: Warm, dry, normal turgor, no rashes or lesions noted LABS Laboratory Results - last 24 hr 07/30/18 07/31/18 07/31/18 16:00 09:30 09:30 WBC 3.5 L RBC 2.59 L Hgb 9.5 L Hct 28.5 L MCV 110.1 H MCH 36.7 H MCHC 33.3 RDW 27.4 H Plt Count 101 L MPV 11.2 H Absolute Neuts (auto) 1.1 Neutrophils % No Result Required. Neutrophils % (Manual) 34.0 L Lymphocytes % No Result Required. Lymphocytes % (Manual) 61.0 H Monocytes % (Manual) 3 L Eosinophils % (Manual) 2.0 Platelet Estimate Decreased Sodium 136 Potassium 3.8 Chloride 106 Carbon Dioxide 25 Anion Gap 5 L BUN 8 Creatinine 0.7 Creat Clearance w eGFR > 60 Random Glucose 148 H Calcium 8.7 Magnesium 1.8 Total Bilirubin 2.2 H Direct Bilirubin 0.3 H AST 40 H ALT 26 Alkaline Phosphatase 58 LD Total 1325 H Total Protein 6.1 L Albumin 3.4 HOSPITAL COURSE: Date of Admission:07/30/18 Date of Discharge: 07/31/18 Pre hospital course 48 year-old female with a PMH significant for hypothyroidism, iron-deficiency anemia, and s/p liposuction of both upper extremities and abdomen on 1/4/19. Sent to the ED by Dr. Carlos Manuel Patel who performed the procedure. Patient had reported to him symptoms of profound fatigue for the past 10 days. Labs drawn in his office showed a Hgb 7.4. He referred the patient to the ED for transfusion. Patient found to be pancytopenic. Subsequent hospital course by problem list Severe vitamin B12 deficiency in post-op setting with nitrous oxide as anesthetic agent Pseudothrombotic micrangiopathy --patient presented three weeks post-op with pancytopenia, transfused 2U with good response and resolution of clinical symptoms of fatigue --B12 level with significant macrocytosis; there were no focal neuro deficits ; [employer] Dr. Carrasco's impression was B12 depletion with associated pseudo- thrombotic microangiopathy; patient was started on parenteral B12; will continue for 7 consecutive days at outpatient infusion center at [place], and then continued follow up with Dr. Carrasco --discussion amongst treating providers about possibility of subacute neurologic sequelae; patient advised about need for close followup with Dr. Carrasco and with neuro Hyperbilirubinemia --total bili peaked 3.5, trended down Hypothyroidism --TSH 1.94-->4.43; pre-procedure 15.5; levothyroxine dose was adjusted by PCP --continued home dosing Minutes to complete discharge: 35 Discharge Summary Reason For Visit: SIGNS AND SYMPTOMS OF ANEMIA Current Active Problems Anemia, macrocytic (Acute) Hypothyroidism (Acute) Prophylactic measure (Acute) Signs and symptoms of anemia (Acute) Condition: Improved - Instructions Diet, Activity, Other Instructions: Starting tomorrow, August 01, you will be coming to the second floor of [facility] for daily Vitamin B12 injections for seven (7) days. You will need to follow up with Dr. Shasha Carrasco, laborer [employer], with respect to your Vitamin B12 deficiency. Her contact information is enclosed. Call her office on Friday morning to make an appointment to see her. You may also want to follow up with Dr. Jorge Fisher, neurologist. His contact information is also enclosed. Return to the emergency room for any new or worsening symptoms. Referrals: Shasha Carrasco MD [Staff Physician] - Aris Bradley MD [Primary Care Provider] - 1 Week Disposition: HOME - Home Medications Comprehensive Discharge Medication List: Ambulatory Orders Levothyroxine [Synthroid -] 50 mcg PO DAILY 07/28/18 This patient is new to me today: No Emergency Visit: Yes ED Registration Date: 07/30/18 Care time: The patient presented to the Emergency Department on the above date and was hospitalized for further evaluation of their emergent condition. Critical Care patient: No - Discharge Referral Referred to [facility] No
[2018-07-31 14:22] VITALS: BP 118/73; PULSE 83; TEMP 98.4
--- NOTE | 2018-07-31 15:32 | PN ---
Progress Note, Physician History of Present Illness: stable no complaints - Current Medication List Current Medications: Active Medications Acetaminophen (Tylenol -) 650 mg PO Q6H PRN PRN Reason: PAIN LEVEL 1-5 Last Admin: 07/29/18 19:02 Dose: 650 mg Docusate Sodium (Colace -) 100 mg PO DAILY [facility] Last Admin: 07/31/18 09:45 Dose: 100 mg Levothyroxine Sodium (Synthroid -) 50 mcg PO DAILY@0700 [facility] Last Admin: 07/31/18 06:28 Dose: 50 mcg Senna (Senna -) 1 tab PO HS [facility] Last Admin: 07/30/18 22:52 Dose: Not Given - Objective Vital Signs: Vital Signs Temperature 98.4 F 07/31/18 14:21 Pulse Rate 83 07/31/18 14:21 Respiratory Rate 16 07/31/18 14:21 Blood Pressure 118/73 07/31/18 14:21 O2 Sat by Pulse Oximetry (%) 98 07/31/18 14:21 Constitutional: Yes: No Distress, Calm, Obese Cardiovascular: Yes: Regular Rate and Rhythm Respiratory: Yes: Regular, CTA Bilaterally Gastrointestinal: Yes: Normal Bowel Sounds, Soft Musculoskeletal: Yes: WNL Extremities: Yes: WNL Neurological: Yes: Alert, Oriented Psychiatric: Yes: Alert, Oriented Labs: CBC, BMP 07/31/18 09:30 07/31/18 09:30 INR, PTT INR 1.19 (0.82-1.09) 07/30/18 07:00 Assessment/Plan patient alos c/o of vomiting and nausea she also mentions lot of aspiration of blood from her arms Problem List - Problems (1) Anemia, macrocytic Code(s): D53.9 - NUTRITIONAL ANEMIA, UNSPECIFIED (2) Hypothyroidism Code(s): E03.9 - HYPOTHYROIDISM, UNSPECIFIED (3) Prophylactic measure Code(s): Z29.9 - ENCOUNTER FOR PROPHYLACTIC MEASURES, UNSPEC liposuction vit b12 deciency plan continue current mgmt monitor neurologic deficency rest as per the team b12 replacement
--- NOTE | 2018-07-31 16:11 | PN ---
Progress Note (short form) - Note Progress Note: ambulating no complaint eager for d/c PE is grossly stable P Smear - correction from yest: schistos 3+ considering oscar, fragment, dysmorphic forms; hyperseg neutrophils; absent polychromasia Todays smear less microangiopathic, few large plts Imp: B12 depletion; assoc pseudo-thrombotic microangiopathy (pseudo-TMA). She has started parenteral B12. Bili and plts improved, there is no RI -all supportive of above dx and NOT TTP. We can send out an ADAMTS 13 if possib. Expect to see reticulocytosis 3-4d - would check tomorrow. Unfortunately retic could not be added on to admission labwork Hemolytic indices should cont to improve - send bili, ldh, hapto tomorrow f/u K+ I am concerned re: subacute neurologic sequelae. For neuro eval Would f/u w GI for endoscopy as outpt. She will f/u in my office Thurs and cont B12 inj daily over the week. Will f/u on IF Ab
[2018-07-31 17:54] LABS: ANISOCYTOSIS 3+; MACROCYTOSIS 2+
--- NOTE | 2018-07-31 18:16 | CON.NEURO ---
Consult - History of Present Illness History of Present Illness: 48 year old F with hypothyroidism and anemia (pt has been transfused in the remote past) presents to ED at the urging of Dr. Patel who performed liposuction two weeks ago. Ms. Moran reports 10days of generalized malaise, somnolence and intermittent nausea which has been affecting her ADLs. She presented to Dr. Patel for routine post-op check on 07/27, where she reported her persistent symptoms and therefore labs were drawn. She was notified by Dr. Patel on the afternoon of 07/28 that her H/H was low and she required inpt admission for transfusion. In ED, pt was hemodynamically stable. BP 100/59, T 99.1, RR 16, O2 sat 100, HR 100bpm. STAT CBC: H/H 7.3/21.5, PLT 126, WBC 3.6 Pt had T and S sent to lab prior to 2units PRBC transfusion. 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, CVA, Dementia, Migraine, Multiple Sclerosis, Peripheral Neuropathy, Parkinson's, Seizure, Syncope, TIA, Vertigo, Other Cardio/Vascular: No: AFIB, Aneurysm, Aortic Insufficiency, Aortic Stenosis, CAD , CHF, Deep Vein Thrombosis, HTN, Hyperlipdemia, NH, Mitral Insufficiency, Mitral Stenosis, Murmur, Pulmonary Hypertension, Other Pulmonary: No: Asthma, Bronchitis, Cancer, COPD, O2 Dependent, Pneumonia, Previously Intubated, Pulmonary Embolus, Pulmonary Fibrosis, Sleep Apnea, Other Gastrointestinal: No: Ascites, Cancer, Constipation, Crohn's Disease, Diverticulitis, Diverticulosis, Esophageal Varices, Gastritis, GERD, GI Bleed, Hemorrhoids, Hiatal Hernia, Inflamatory Bowel Disease, Irritable Bowel Disease, Pancreatitis, Peptic Ulcer Disease, Ulcerative Colitis, Other Hepatobiliary: No: Cirrhosis, Cholelithiasis, Cholecystitis, Choledocholithiasis , Hepatitis A, Hepatitis B, Hepatitis C, Other Renal/: No: Renal Failure, Renal Inusuff, BPH, Cancer, Hematuria, Hemodialysis , Neurogenic Bladder, Renal Calculi, UTI, Other Infectious Disease: No: AIDS, C-Diff, Herpes Zoster, HIV, MRSA, STD's, Tuberculosis, VREF, Other Psych: No: Addictions, Anxiety, Bipolar, Depression, Panic, Psychosis, Schizophrenia, Other Musculoskeletal: No: Bursitis, Chronic low back pain, Hemiparesis, Hemiplegia, Osteoarthritis, Paraplegia, Other Rheumatology: No: Fibromyalgia, Gout, Lupus, Rheumatoid Arthritis, Sarcoidosis, Vasculitis, Other ENT: No: Allergic Rhinitis, Sinusitis, Other Endocrine: Yes: Hypothyroidism Dermatology: No: Basal Cell, Cellulitis, Eczema, Melanoma, Psoriasis, Squamous Cell, Other - Past Surgical History Past Surgical History: Yes: (shivani patel 2018 liposuction 06/2018) - Alcohol/Substance Use Hx Alcohol Use: No History of Substance Use: reports: None - Smoking History Smoking history: Never smoked Have you smoked in the past 12 months: No - Social History ADL: Independent Occupation: Homemaker History of Recent Travel: No Home Medications - Allergies Allergies/Adverse Reactions: Allergies Allergy/AdvReac Type Severity Reaction Status Date / Time No Known Allergies Allergy Verified 07/28/18 15:04 - Home Medications Home Medications: Ambulatory Orders Levothyroxine [Synthroid -] 50 mcg PO DAILY 07/28/18 Family Disease History - Family Disease History Family Disease History: Other: Father (alive(86) DMII, HTN), Mother (alive (85) HTN) Physical Exam-Neuro Vital Signs: Vital Signs Temperature 98.4 F 07/31/18 14:21 Pulse Rate 83 07/31/18 14:21 Respiratory Rate 16 07/31/18 16:12 Blood Pressure 118/73 07/31/18 14:21 O2 Sat by Pulse Oximetry (%) 97 07/31/18 16:12 Labs: CBC, BMP 07/31/18 09:30 07/31/18 09:30 INR, PTT INR 1.19 (0.82-1.09) 07/30/18 07:00 - Neuro Exam Level Of Consciousness: Yes: Alert (motor 5/5, reflexes distal reduced, prop intact, ) Problem List - Problems (1) B12 deficiency Code(s): E53.8 - DEFICIENCY OF OTHER SPECIFIED B GROUP VITAMINS (2) Anemia, macrocytic Code(s): D53.9 - NUTRITIONAL ANEMIA, UNSPECIFIED Assessment/Plan 48 year old F with hypothyroidism and anemia (pt has been transfused in the remote past) presents to ED at the urging of Dr. Patel who performed liposuction two weeks ago. Ms. Moran reports 10days of generalized malaise, somnolence and intermittent nausea which has been affecting her ADLs. She presented to Dr. Patel for routine post-op check on 07/27, where she reported her persistent symptoms and therefore labs were drawn. She was notified by Dr. Patel on the afternoon of 07/28 that her H/H was low and she required inpt admission for transfusion. B12 very low AP : acute B12 deficiency likely precipitated by nitrous anesthesia to FU IF and rest of pernicious anemia, MMA, homocysteine labs B12 repletion qd x 7 days then monthly can FU outpt DR PLATT
== END 2018-07-31 18:50 | disposition home or self-care (01) | DRG 663 ==
LOC: SUPCPDRO 15:01 → FER 15:01 → FM/S 17:36 → OBSVTOIN 07-30 13:23
PROVIDERS: ATTEND Nurse Practitioner Acute Care
PROC: 30233N1 Transfusion of Nonautologous Red Blood Cells into Peripheral Vein, Percutaneous Approach (ICD-10-PCS; principal; 2018-07-28)
DX: D75.89 Other specified diseases of blood and blood-forming organs (principal); E53.8 Deficiency of other specified B group vitamins; D53.9 Nutritional anemia, unspecified; E03.9 Hypothyroidism, unspecified; E66.9 Obesity, unspecified; Z68.35 Body mass index [BMI] 35.0-35.9, adult; D69.6 Thrombocytopenia, unspecified; D61.818 Other pancytopenia; R74.0 Nonspecific elevation of levels of transaminase and lactic acid dehydrogenase [LDH]; M31.1 Thrombotic microangiopathy; D53.1 Other megaloblastic anemias, not elsewhere classified
CPT/HCPCS: 36415; 36430; 74177-TC; 76882-TC-RT-FY; 80048; 80053; 80076; 82136; 82248; 82607; 82746; 83615; 83735; 83918; 84100; 84439; 84443; 85025; 85610; 85730; 86340; 86850; 86900; 86901; 86922; 87040; 93005; 99284-25; G0378; J7030; P9038; P9058

== ENCOUNTER 2018-08-01 13:15 | Day surgery (SDC) | payer OTHER ==
[2018-08-01 13:31] VITALS: BP 116/61
[2018-08-01 13:38] VITALS: PULSE 78; TEMP 98.5
[2018-08-01] MEDS ORDERED: CYANOCOBALAMIN (VITAMIN B-12) 1000 MCG/1 ML VIAL IM SCH (16:15)
== END 2018-08-01 13:30 | disposition home or self-care (01) ==
LOC: FINJECTION 13:15 → FM/S 13:18 → FINJECTION 13:30
PROVIDERS: ATTEND Internal Medicine Hematology & Oncology
PROC: 3E023GC Introduction of Other Therapeutic Substance into Muscle, Percutaneous Approach (ICD-10-PCS; principal; 2018-08-01)
DX: D51.8 Other vitamin B12 deficiency anemias (principal); D69.6 Thrombocytopenia, unspecified
CPT/HCPCS: 96372

== ENCOUNTER 2018-08-02 14:18 | Day surgery (SDC) | payer OTHER ==
[2018-08-02 14:41] VITALS: BP 130/71; PULSE 80; TEMP 97.4; BMI 34.2
[2018-08-02] MEDS ORDERED: CYANOCOBALAMIN (VITAMIN B-12) 1000 MCG/1 ML VIAL IM SCH (15:45)
== END 2018-08-02 15:50 | disposition home or self-care (01) ==
LOC: FINJECTION 14:18 → FM/S 14:19 → FINJECTION 15:50
PROVIDERS: ATTEND Internal Medicine Hematology & Oncology
PROC: 3E023GC Introduction of Other Therapeutic Substance into Muscle, Percutaneous Approach (ICD-10-PCS; principal; 2018-08-02)
DX: D51.8 Other vitamin B12 deficiency anemias (principal); D69.6 Thrombocytopenia, unspecified
CPT/HCPCS: 96372

== ENCOUNTER → 2018-08-03 | Day surgery (SDC) | payer OTHER ==
[~2018-08-03] MED LIST: CYANOCOBALAMIN (VITAMIN B-12) 1000 MCG/1 ML VIAL IM ONE
[2018-08-03 14:59] VITALS: BP 118/73; PULSE 70; TEMP 98
== END | disposition home or self-care (01) ==
LOC: FINJECTION 14:19
PROVIDERS: ATTEND Internal Medicine Hematology & Oncology
PROC: 3E023GC Introduction of Other Therapeutic Substance into Muscle, Percutaneous Approach (ICD-10-PCS; principal; 2018-08-03)
DX: D51.8 Other vitamin B12 deficiency anemias (principal); D69.6 Thrombocytopenia, unspecified
CPT/HCPCS: 96372

== ENCOUNTER 2018-08-04 14:28 | Day surgery (SDC) | payer OTHER ==
[2018-08-04] MEDS ORDERED: CYANOCOBALAMIN (VITAMIN B-12) 1000 MCG/1 ML VIAL SQ ONE (14:50)
[2018-08-04 14:52] VITALS: BP 122/76; PULSE 78; TEMP 98.6
[2018-08-04 15:35] LABS: WHITE BLOOD COUNT 4.2 K/mm3 (4.0-10.8)
[2018-08-04 15:41] LABS: HEMOGLOBIN 10.7 GM/dl (10.7-15.3); MCH 35.5 pg (25.7-33.7); MCHC 32.3 g/dl (32.0-36.0); MEAN PLT VOLUME 9.4 fl (7.5-11.1); PLATELET COUNT 108 K/MM3 (134-434); RBC 3.01 M/mm3 (3.60-5.2); RDW 25.4 % (11.6-15.6)
== END 2018-08-04 14:54 | disposition home or self-care (01) ==
LOC: FINJECTION 14:28
PROVIDERS: ATTEND Internal Medicine Hematology & Oncology
PROC: 3E023GC Introduction of Other Therapeutic Substance into Muscle, Percutaneous Approach (ICD-10-PCS; principal; 2018-08-04)
DX: D50.8 Other iron deficiency anemias (principal); D69.6 Thrombocytopenia, unspecified
CPT/HCPCS: 36415; 85027; 96372

== ENCOUNTER → 2018-08-05 | Day surgery (SDC) | payer OTHER ==
[2018-08-05 14:05] VITALS: BP 116/78; PULSE 73; TEMP 98
== END | disposition home or self-care (01) ==
LOC: FINJECTION 13:33
PROVIDERS: ATTEND Internal Medicine Hematology & Oncology
PROC: 3E023GC Introduction of Other Therapeutic Substance into Muscle, Percutaneous Approach (ICD-10-PCS; principal; 2018-08-05)
DX: D50.9 Iron deficiency anemia, unspecified (principal); D69.6 Thrombocytopenia, unspecified
CPT/HCPCS: 96372

== ENCOUNTER 2018-08-23 09:23 | Emergency (ER) | payer OTHER ==
[2018-08-23 09:46] VITALS: BP 126/71; PULSE 96; TEMP 99; BMI 36.1
--- NOTE | 2018-08-23 09:56 | PDOC ---
History of Present Illness - General Chief Complaint: Cold Symptoms Stated Complaint: COUGH Time Seen by Provider: 08/23/18 09:25 History Source: Patient Exam Limitations: No Limitations - History of Present Illness Initial Comments: 08/23/18 09:52 Ms Moran is a 48 y/o female h/o presents with complaints of productive cough and congestion. Dry cough began 3 days ago, last night, pt noted she had a cough which was persistent and now productive of sputum. Low grade fevers of 99. No chest pain. No shortness of breath, no chest pain Pt denies sinus pain, wheezing, hoarseness, sore throat, headache, ear pain, loss of smell, LAD, N/V/D/C, and decreased appetite The patient took tylenol and robitussin for her cough without relief. No recent travel (+) ill contact = son No dyspnea on exertion (-) influenza shot ROS: GENERAL/CONSTITUTIONAL: Yes: fever No: chills, weakness, loss of appetite. HEAD, EYES, EARS, NOSE AND THROAT: No: change in vision, ear pain, discharge, sore throat, throat swelling. CARDIOVASCULAR: No: chest pain, lightheadedness, palpitations, syncope RESPIRATORY: Yes: cough No: shortness of breath, wheezing, hemoptysis, stridor. GASTROINTESTINAL: No: nausea, vomiting, diarrhea, abdominal pain GENITOURINARY: No: dysuria, hematuria, frequency, urgency, flank pain. MUSCULOSKELETAL: No: back pain, neck pain, joint pain, muscle swelling or pain SKIN: No: lesions, pallor, rash or easy bruising. NEUROLOGIC: No: headache, vertigo, paresthesias, weakness ENDOCRINE: No: unexplained weight gain or loss HEMATOLOGIC/LYMPHATIC: No: anemia, easy bleeding, swelling nodes. PHYSICAL EXAM Patient awake alert oriented x3 acting appropriately on exam in no acute distress Head NCAT Eyes: PERRLA, there is no conjunctiva injection. Ears: Auditory canals are clear, tympanic membrane bilaterally are natarajan with good reflex no effusion, no mastoid tenderness Nose: Turbinates pink without swelling discharge or erythema, discomfort over frontal and maxillary sinus Throat: Posterior pharynx pink, moist, no tonsillar enlargement, uvula is midline Neck: Supple, no cervical adenopathy, no nuchal rigidity Lungs: Clear to auscultation bilaterally, no wheezes rales or rhonchi appreciated Extremities: Patient actively moving all extremities without difficulty, no tenderness Neuro: Cranial nerves II - XII in tact, motor and sensory intact Skin: Clean warm and dry without rash 08/23/18 09:57 Past History - Past Medical History Allergies/Adverse Reactions: Allergies Allergy/AdvReac Type Severity Reaction Status Date / Time No Known Allergies Allergy Verified 07/28/18 15:04 Home Medications: Ambulatory Orders Levothyroxine [Synthroid -] 50 mcg PO DAILY 07/28/18 Azithromycin [Zithromax 250mg Tablets -] 250 mg PO UTDICT #6 tab 08/23/18 Benzonatate [Tessalon Pearls -] 100 mg PO TID PRN #21 capsule 08/23/18 Guaifenesin [Mucinex -] 600 mg PO BID #14 tablet.er 08/23/18 COPD: No Diabetes: Yes Thyroid Disease: Yes (hypo) - Family Disease History Family Disease History: Diabetes: Sister - Suicide/Smoking/Psychosocial Hx Smoking History: Never smoked Have you smoked in the past 12 months: No Information on smoking cessation initiated: No Hx Alcohol Use: No Drug/Substance Use Hx: No Substance Use Type: None Hx Substance Use Treatment: No *Physical Exam - Vital Signs Last Vital Signs Temp Pulse Resp BP Pulse Ox 99 F 96 H 20 126/71 98 08/23/18 09:23 08/23/18 09:23 08/23/18 09:23 08/23/18 09:23 08/23/18 09:23 Moderate Sedation - Procedure Monitoring Vital Signs: Procedure Monitoring Vital Signs Temperature 99 F 08/23/18 09:23 Pulse Rate 96 H 08/23/18 09:23 Respiratory Rate 20 08/23/18 09:23 Blood Pressure 126/71 08/23/18 09:23 O2 Sat by Pulse Oximetry (%) 98 08/23/18 09:23 Medical Decision Making - Medical Decision Making 08/23/18 10:04 48 y/o male,female presents with complaints of productive cough and congestion x a total of 3 days. Based on the patients o2 saturation, physical exam, being afebrile I find it unlikely that they have pneumonia No throat pain to suggest pharyngitis. No high fevers or body aches to suggest influenza. Symptoms likely viral vs. bronchitis I've instructed the patient to take Azithromycin, rest, remain hydrated and to take over the counter analgesics/antipyretics for pain or fever as instructed on the package. I've told the patient that if they develop any new or worsening symptoms to present straight to the ER and to follow up with their primary care provider in 24-48 hours. I've explained the above diagnosis and plan to the patient of which they expressed understanding and are in agreement. *DC/Admit/Observation/Transfer Diagnosis at time of Disposition: Bronchitis - Discharge Dispostion Disposition: HOME Condition at time of disposition: Stable Decision to Admit order: No - Prescriptions Prescriptions: Azithromycin [Zithromax 250mg Tablets -] 250 mg PO UTDICT #6 tab Benzonatate [Tessalon Pearls -] 100 mg PO TID PRN #21 capsule PRN Reason: Cough Guaifenesin [Mucinex -] 600 mg PO BID #14 tablet.er - Referrals - Patient Instructions Printed Discharge Instructions: DI for Viral Upper Respiratory Infection -- Adult, DI for Common Cold Additional Instructions: Thank you for coming in to the ER Take medications as prescribed, including the antibiotic. While taking the antibiotic, please take a probiotic. Please be sure to follow up with your primary care physician Return to the emergency department immediately with ANY new, persistent or worsening symptoms - high fevers, difficulty breathing Please take motrin or tylenol for fevers. Continue any medications as previously prescribed by your physician. You should follow up with your primary doctor as soon as possible regarding today's emergency department visit. Please make sure your doctor reviews the results of your emergency evaluation. Thank you for coming to the [facility] today for your care. It was a pleasure to see you today. Please note that your evaluation is INCOMPLETE until you follow-up with your doctor. - Post Discharge Activity Forms/Work/School Notes: Back to Work
== END 2018-08-23 10:04 | disposition home or self-care (01) ==
LOC: FER 09:23
DX: J40 Bronchitis, not specified as acute or chronic (principal)
CPT/HCPCS: 99282-25

== ENCOUNTER 2023-08-05 13:06 | Emergency (ER) | payer OTHER ==
[2023-08-05 13:18] VITALS: BP 119/70; PULSE 72; RESP 17; TEMP 98.3; BMI 35.4
[2023-08-05] MEDS ORDERED: IBUPROFEN 600 MG TABLET (FP) PO ONE (14:06)
[2023-08-05] MEDS: IBUPROFEN 600 MG TABLET (FP) PO ONE (14:29)
== END 2023-08-05 16:17 | disposition home or self-care (01) ==
LOC: FER 13:06
DX: M25.561 Pain in right knee (principal); M79.641 Pain in right hand; S89.92XA Unspecified injury of left lower leg, initial encounter; W10.9XXA Fall (on) (from) unspecified stairs and steps, initial encounter
CPT/HCPCS: 73110-TC-RT-FY; 73130-TC-RT-FY; 73562-TC-RT-FY; 73590-TC-RT-FY; 99284-25